=== PATIENT | male | born 1955 | race Caucasian/White ===

== ENCOUNTER → 2023-07-22 | Outpatient (CLI) | payer MEDICARE, SELFPAY ==
--- NOTE | 2023-07-22 12:27 | NEURO_ITS ---
NCS and/or EMG Patient Report Ordering Doctor: Nash Myles DATE OF SERVICE: 07/22/23 Aaron presents electrodiagnostic testing in the lower limbs. He reports some numbness and pain in the lateral leg bilaterally, worse on the right side. Electrodiagnostic findings: Right peroneal motor nerve demonstrates normal distal latency, amplitude and conduction velocity. Left peroneal motor nerve demonstrates normal distal latency, amplitude and conduction velocity. Tibial motor responses within normal limits bilaterally. Normal tibial and peroneal F waves. H reflex is prolonged bilaterally. Sural responses are within normal limits absent right superficial peroneal response. Absent plantar response gama aterally. Normal left superficial peroneal response. Needle EMG testing was performed in the lower limbs. All muscles tested showed no evidence of denervation with normal motor unit action potentials. Electrodiagnostic impression: This is an abnormal study in the lower limbs 1. 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 Etiology of this condition is unknown. 2. No electrodiagnostic evidence is noted for lumbosacral radiculopathy. Multi Select Codes Neurology Neurology Interp Codes: 31786-99 Musc test done w/n test comp (interp) (2) and 99041-54 Nrv cndj test 11-12 studies (interp)
== END | disposition home or self-care (01) ==
LOC: PSN 08:16
PROVIDERS: PCP Family Medicine; Referring Provider Family Medicine; Visit Provider Family Medicine
DX: R20.0 Anesthesia of skin (principal); R20.2 Paresthesia of skin
CPT/HCPCS: 95886; 95912

== ENCOUNTER → 2023-09-15 | Outpatient (CLI) | payer MEDICARE, SELFPAY ==
--- NOTE | 2023-09-15 07:21 | MRI_ITS ---
STUDY: MRI BRAIN WITH AND WITHOUT CONTRAST REASON FOR EXAM: Male, 67 years old. GLAUCOMATOUS OPTIC ATROPHY TECHNIQUE: Standardized multiplanar fat and water weighted pulse sequences were obtained. IV 18ml clariscan was administered for the contrast portion of the examination. COMPARISON: None. FINDINGS: Mild atrophy and minor periventricular white matter hyperintensity which may be consistent with normal aging. No significant white matter disease mass effect or restricted diffusion. Normal bilateral basal ganglia. Normal thalami. There is no extra-axial fluid accumulation. Normal flow voids within the major intracranial circulation suggesting patency by spin echo criteria. Normal venous enhancement. There is no enhancing intra-axial or extra-axial abnormality. Normal sella turcica, pituitary gland, infundibular stalk, optic chiasm and hypothalamus. Normal tectal plate and pineal gland. Normal midbrain, lang and medulla. Normal cerebellum. Normal basal cisterns. Normal bilateral temporal bones. Normal bilateral internal auditory canals. There is mildly diffusely increased signal within the left optic nerve on T2 and compared with the right association with asymmetric smaller left optic chiasm which may be consistent with glaucomatpos atrophy.. Minor mucosal thickening of the ethmoid air cells. Normal calvarium and skull base. Normal visualized soft tissue structures. Normal visualized upper cervical spine. MRI/Brain W/WO Contrast IMPRESSION: No significant abnormalities within the brain. 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
--- NOTE | 2023-09-15 07:38 | RAD_ITS ---
STUDY: X-RAY - ORBITS REASON FOR EXAM: Male, 67 years old. FB -- pre-mri, h/o metal grindings in eye 30+ years ago, pt unsure which eye TECHNIQUE: 2 view(s) of the orbits were obtained. COMPARISON: None. FINDINGS: Normal bilateral orbits without a metallic orbital foreign body. Normal visualized facial bones. Normal paranasal sinuses. The soft tissue structures are unremarkable. RAD/Orbits for Foreign Body IMPRESSION: No demonstrated metallic orbital foreign body. The patient is cleared for an MRI examination. Electronically Signed: Demetrius Ta MD at 8:42 EDT ,
[2023-09-18 23:31] LABS: CREATININE FINGERSTICK 1.43 mg/dL (0.70-1.30)
== END | disposition home or self-care (01) ==
PROVIDERS: PCP Family Medicine
DX: H47.233 Glaucomatous optic atrophy, bilateral (principal)
CPT/HCPCS: 70030; 70553; A9575